=== PATIENT | female | born 1990 | race Caucasian/White ===

== ENCOUNTER 2024-04-03 14:08 | Emergency (ER) | payer OTHER, SELFPAY ==
[2024-04-03 14:23] VITALS: BP 136/71
--- NOTE | 2024-04-03 14:33 | ED.GENMED ---
History of Present Illness
General
Chief Complaint: Skin Problem
Source: patient
Exam Limitations: none
Time Seen by Provider: 04/03/24 14:24
Nursing documentation reviewed up to this point in time: agreed with
History of Present Illness
History of Present Illness:
34 y/o fwith h/o dermatomysoitis on plaquanel and MTX
here with a itchy/burning rash starting righ tthigh and progression to groin right, right thigh anterior/lateral and buttock region over the past 3 days
slightly feeling fatigued, but no fever
has some burning pain but mostly itching
the rash started out as tiny blisters that ended up popping and scabbing
she has been applyiing hydrocoristone
she had COVID 2 weeks ago
called her PCP who sent her in. she was wondering if it is monkey pox
but she has no promiscuou activity
has hda chicken pox as kid
Past History
Past History
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
Social History
Tobacco: Non-smoker
Alcohol: None
Drug: None
Personal: Single
Review of Systems
Review of Systems
Allergies reviewed?: Yes
All Other Systems: Not applicable
Phy Exam
Physical Exam
Physical Exam:
GENERAL: Alert , in no apparent distress
EYE: pupils equal and reactive
NECK: Supple
ENT: o/p clr, mmm.
CARDIAC: Regular rate and rhythm .
LUNGS: Clear breath sounds bilaterally, no acute respiratory distress, no wheezes/rales/rhonchi
ABDOMEN: Soft, without focal tenderness, no r/g, no cvat, normal bowel sounds
NEUROLOGICAL: Alert and oriented, no focal neuro deficits, strenght and sensation of legs intact
SKIN: Warm and dry,
pt has a veiscular erythematou srash multiple stages, some scabbed, some vesicles some popped to right anterior/lateral thigh - groin to just above knee and lateral back tward buttocks
crosses a few Lumbar dermatomes but does not cross the midline
MUSCULOSKELETAL: No edema, well perfused. neg stalin's sign
normal strength and sensation
PSYCH: Normal and appropriate interaction.
Course
Orders/Labs/Results
Orders:
Orders
04/03/24 15:19
Valacyclovir HCl [Valtrex] 1,000 mg PO NOW STA
04/03/24 16:01
Herpes Simplex Vir Subtype PCR [S] Urgent
Herpes Source: Vesicular Fluid
Varicella-Zoster Virus By PCR [S] Urgent
Source: Vesicle Fluid
Vital Signs
Initial and Last Documented VS:
Initial Vital Signs
Temp Pulse Resp BP Pulse Ox
98.2 F 77 16 136/71 98
04/03/24 14:23 04/03/24 14:23 04/03/24 14:23 04/03/24 14:23 04/03/24 14:23
Last Documented Vital Signs
Temp Pulse Resp BP Pulse Ox
98.2 F 74 20 128/76 99
04/03/24 14:23 04/03/24 16:07 04/03/24 16:07 04/03/24 16:07 04/03/24 16:07
MDM/Problems Addressed
Differential Diagnosis Includes:
zoster, vasculitis, covid rash
MDM/Problems Addressed:
34 y/o F immunocompromised
here with eruption of a rash 3 days ago that is vesicular, clusters, with scabs not crossing midline which appears quite c/w zoster
photos taken per pt permission and sent to ID who agreed
recommended me unroofing a blister and culturing for VZV AND HSV
empiric treatmetn with valacyclovid 1 g tid x 7 days
if pt has more eruptions over body or fever, she will return
*Critical Care Note
Total Time (30-74mins, 75-104mins- exclusive of procedures): Not Applicable
ED Attending Note
-
Portions of this chart may have been created with voice recognition software.� Occasional wrong word or��sound alike� substitutions may have occurred due to the inherent limitations of voice recognition software.
Discharge Plan
Departure
Patient Disposition: Home (Routine Discharge)
Date of Disposition: 04/03/24
Time of Disposition: 15:41
Patient with high blood pressure during this ER visit?: No
Condition: Fair
Covid-19: Not Applicable
Discharge Problem:
Herpes zoster
Instructions: Viral Exanthem (DC), Shingles
Prescriptions:
New
valacyclovir 1 gram tablet
1,000 mg PO Q8H Qty: 21 0RF
Activity Restrictions/Additional Instructions:
Your rash appears like herpes zoster. This is commonly known as shingles and is a reactivation of the chickenpox virus. You were tested today but the results will take several days to come back. In the meantime take Valtrex 1 g 3 times a day for
7 days. If you start noticing that you have worsening rash spreading on other parts of your body, fever, ill feeling, weakness in your muscles, etc. please return to the emergency department. You may need to be admitted if this is spreading.
Otherwise please see your family doctor next week
Interventions
Interventions:
*Risk Screen - Suicide Last Done: 04/03/24 14:29
*General Assessment Last Done: 04/03/24 14:29
*Neglect/Abuse Screening Last Done: 04/03/24 14:29
*Nursing Disposition Last Done: 04/03/24 16:07
ED-Skin Assessment Last Done: 04/03/24 15:35
Discharge Date and Time
Discharge Date/Time: 04/03/24 16:07
Print Language: ROMANIAN
[2024-04-03] MEDS: VALTREX 1000 MG PO (15:47)
[2024-04-03 16:07] VITALS: BP 128/76
[2024-04-07 03:46] LABS: Varicella-Zoster Source Vesicle; Varicella-Zoster Virus by PCR Detected
[2024-04-07 11:54] LABS: HSV 1 Subtype by PCR Not Detected; HSV 2 Subtype by PCR Not Detected; Herpes Simplex Source Vesicle
== END 2024-04-03 16:07 | disposition home or self-care (01) ==
LOC: EMR 14:08
PROVIDERS: Physician Assistant; EMERGENCY PHYSICIAN Emergency Medicine; FAMILY PHYSICIAN Family Medicine
DX: B02.9 Zoster without complications (principal); R53.83 Other fatigue; D84.9 Immunodeficiency, unspecified; F32.A Depression, unspecified; Z86.16 Personal history of COVID-19
CPT/HCPCS: 99283; 87529; 87798

== ENCOUNTER 2024-04-12 23:09 | Emergency (ER) | payer OTHER, SELFPAY ==
[2024-04-12 23:14] VITALS: BP 160/94
[2024-04-12 23:48] VITALS: BP 163/93
[2024-04-12 23:49] VITALS: BMI 25.7
[2024-04-13] VITALS: BP 149/92
[2024-04-13 00:01] LABS: % Basophils 0.4 % (0-2); % Immature Granulocytes 0.2 % (0-0.5); % Lymphocytes 16.2 % (20.5-51.1); % Monocytes 5.4 % (1.7-9.3); % Neutrophils 77.8 % (42.2-75.2); Absolute Lymphocytes 1.5 10^3/uL (1.2-3.4); Absolute Monocytes 0.5 10^3/uL (0.1-0.6); Absolute Neutrophils 7.3 10^3/uL (1.4-6.5); Hematocrit 37.3 % (37.0-47.0); Hemoglobin 13.1 g/dL (12.0-16.0); Mean Corp Hgb Conc. 35.1 g/dL (33.0-37.0); Mean Corpuscular Hgb 25.1 pg (27.0-31.0); Mean Corpuscular Volume 71.6 fL (81.0-99.0); Mean Platelet Volume 9.2 fL (7.4-10.4); Nucleated Red Blood Cells % 0 %; Platelet Count 310 10^3/uL (130-400); Red Blood Cell Count 5.21 10^6/uL (4.20-5.40); White Blood Cell Count 9.4 10^3/uL (4.8-10.8)
--- NOTE | 2024-04-13 00:11 | ED.GENMED ---
History of Present Illness
General
Chief Complaint: Abdominal Symptoms
Source: patient and spouse
Time Seen by Provider: 04/13/24 00:02
History of Present Illness
History of Present Illness:
This patient is a 34-year-old female with a history of dermatomyositis who presents emergency department with multiple episodes of nausea and vomiting. This initially began about 3 days ago, the patient states that she slept throughout the night
last night and was able to tolerate eating and drinking throughout most the day today. However, around 5:30 PM tonight, her symptoms started again and continue. She denies associated chest pain, shortness of breath, fever, chills, back pain,
dizziness, bleeding, coffee-ground emesis. She just began menstruation today. She describes overall abdominal soreness from continued vomiting but no focal abdominal tenderness reported. Patient notes that she gets episodes of this from time to
time but has not had it happen in a long time.
Past History
Past History
ED Past Medical History: Other (autoimmune dermatomyositis, migraines)
Social History
Tobacco: Non-smoker
Alcohol: None
Drug: None
Personal:
Living: with family
Phy Exam
Physical Exam
Physical Exam:
GENERAL: Alert , in no apparent distress but occasionally retching
EYE: pupils equal and reactive
NECK: Supple, no significant adenopathy.
ENT: o/p clr, mm dry
CARDIAC: Regular rate and rhythm .
LUNGS: Clear breath sounds bilaterally, no acute respiratory distress, no wheezes/rales/rhonchi
ABDOMEN: Soft, without focal tenderness, no r/g, no cvat
NEUROLOGICAL: Alert and oriented, no focal neuro deficits
SKIN: Warm and dry, skin intact.
MUSCULOSKELETAL: No edema, well perfused.
PSYCH: Normal and appropriate interaction.
Course
Orders/Labs/Results
Orders:
Orders
04/12/24 23:41
IV Insert/Care/Rem.- Treatment PRN
04/12/24 23:53
Complete Blood Count/With Diff Urgent
Comprehensive Metabolic Panel Urgent
HCG, Serum Qualitative Screen Urgent
Comment: ADD ON
Lipase Urgent
04/13/24 00:10
0.9% Sodium Chloride 1000 ml [Nss] 1,000 ml IV BOLUS
Diphenhydramine [Benadryl] 25 mg IV NOW STA
Metoclopramide [Reglan] 10 mg IV NOW STA
Test Result ONCE
04/13/24 00:21
Add On- LAB Urgent
Comments:: serum preg
Tests Added?: serum preg qualitative
Abnormal Lab Results
04/12/24
23:53
MCV 71.6 L fL
(81.0-99.0)
MCH 25.1 L pg
(27.0-31.0)
Absolute Neuts (auto) 7.3 H 10^3/uL
(1.4-6.5)
Neutrophils % 77.8 H %
(42.2-75.2)
Lymphocytes % 16.2 L %
(20.5-51.1)
BUN 19 H mg/dl
(7-17)
Creatinine 0.5 L mg/dL
(0.6-1.0)
Glucose 125 H mg/dl
(70-99)
04/12/24 23:53
04/12/24 23:53
Vital Signs
Initial and Last Documented VS:
Initial Vital Signs
Temp Pulse Resp BP Pulse Ox
98.6 F 62 24 160/94 97
04/12/24 23:14 04/12/24 23:14 04/12/24 23:14 04/12/24 23:14 04/12/24 23:14
Last Documented Vital Signs
Temp Pulse Resp BP Pulse Ox
98.6 F 62 24 160/94 97
04/12/24 23:14 04/12/24 23:14 04/12/24 23:14 04/12/24 23:14 04/12/24 23:14
Update Note
Update Note:
Patient presents to the Emergency Department with __intractable vomiting
Number and Complexity of Problems Addressed at the Encounter
� Chronic conditions affecting care:
� Acute Exacerbation and/or Progression of Chronic Illness:
� Differential Diagnosis includes: But not limited to medication effect, viral illness, pancreatitis, bowel obstruction, etc. etc.
Amount and/or Complexity of Data to be Reviewed and Analyzed
� I performed an independent evaluation of and my interpretation is:
EKG:
CT:
Xrays:
Laboratory Studies:unremarkable
Other:
� Review of other/old records reveals:
� Clinical information was obtained by an independent historian: who is bedside
� Prescriptions/Medications Considered but not given:
� Further testing considered but not performed:
Risk of Complications and/or Morbidity or Mortality of Patient Management
� Social determinants of health affecting care:
� Discussion with other providers (PCP, Hospitalists, Consultants, etc):
� Escalation of care including admission/observation vs risk of discharge considered:202 AM Pt slept for some time, now awake, smiling, feels much better. Would like to rest more before consideration of po trial. No further n
or v. No abd pain. No abd ttp on repeat exam. S/o to reassess, likely d/c.
ED Attending Note
-
Portions of this chart may have been created with voice recognition software.� Occasional wrong word or��sound alike� substitutions may have occurred due to the inherent limitations of voice recognition software.
Discharge Plan
Departure
Patient with high blood pressure during this ER visit?: Yes
Condition: Good
Discharge Problem:
Vomiting
Instructions: Nausea and Vomiting, Adult (DC), BLOOD PRESSURE
Prescriptions:
No Action
valacyclovir 1 gram tablet
1,000 mg PO Q8H Qty: 21 0RF
Referrals:
Lacy Hauser DO [Family Provider] - Follow up in 2-3 days
Activity Restrictions/Additional Instructions:
IF YOU DEVELOP ABDOMINAL PAIN, BLEEDING, FEVER, RECURRENT VOMITING, DIARRHEA, DIZZINESS OR OTHER WORRISOME SIGNS, GO TO THE ER IMMEDIATELY!
Interventions
Interventions:
*Risk Screen - Suicide Last Done: 04/12/24 23:14
*General Assessment Last Done: 04/12/24 23:43
*Neglect/Abuse Screening Last Done: 04/12/24 23:14
ED- Fall Risk Assessment Last Done: 04/12/24 23:43
*ED COVID-19 Vaccine History Last Done: 04/12/24 23:43
BI-Jlylgq-Mkyzsayxuj Assessment Last Done: 04/12/24 23:43
Discharge Date and Time
Print Language: SLOVAK
[2024-04-13 00:15] LABS: ALT (SGPT) 14 U/L (0-35); AST (SGOT) 25 U/L (14-36); Alkaline Phosphatase 67 U/L (38-126); Blood Urea Nitrogen 19 mg/dl (7-17); Calcium 9.8 mg/dl (8.4-10.2); Carbon Dioxide 23 mmol/L (22-30); Chloride 101 mmol/L (98-107); Estimated Creatinine Clearance 121 ml/min; Glucose 125 mg/dl (70-99); Lipase 117 U/L (23-300); Potassium 3.7 mmol/L (3.5-5.1); Sodium 141 mmol/L (135-145); Total Bilirubin 0.8 mg/dl (0.2-1.3); Total Protein 7.8 g/dl (6.3-8.2); eGFR > 60.00
[2024-04-13] MEDS: NSS 1000 IV (00:24)
[2024-04-13] MEDS: REGLAN 10 MG IV (00:27)
[2024-04-13] MEDS: BENADRYL 25 MG IV (00:29)
[2024-04-13 00:51] LABS: HCG, Serum Qualitative Screen Negative
[2024-04-13 01:00] VITALS: BP 122/80
[2024-04-13 02:00] VITALS: BP 96/56
[2024-04-13 03:00] VITALS: BP 98/66
== END 2024-04-13 04:00 | disposition home or self-care (01) ==
LOC: EMR 23:09
PROVIDERS: Emergency Medicine; EMERGENCY PHYSICIAN Emergency Medicine; FAMILY PHYSICIAN Family Medicine
DX: R11.2 Nausea with vomiting, unspecified (principal); M33.90 Dermatopolymyositis, unspecified, organ involvement unspecified
CPT/HCPCS: 99283; 96374; 96375; 96361; 80053; 83690; 84703; 85025